=== PATIENT | female | born 1950 | race African-American/Black ===

== ENCOUNTER 2018-11-03 09:26 | Observation (INO) ==
--- NOTE | 2018-11-03 10:30 | XR ---
EXAM DATE: 11/03/2018 10:02 AM EST AGE/SEX: 68 years / Female INDICATIONS: Chest Pain CLINICAL DATA: This is the patient's initial encounter. Patient reports that signs and symptoms have been present for 1 day and indicates a pain score of 5/10. MEDICAL/SURGICAL HISTORY: None. . Left Breast Surgery COMPARISON: No prior exams available for comparison. FINDINGS: The heart size is upper limits of normal. The aorta appears widened. There is increased interstitial markings in the upper lungs. The mid and inferior lungs appear clear. There is blunting of the left costophrenic angle suggestive of a mild left effusion. Clips are seen in the left axillary region. Th e patient appears to be status post left mastectomy. There is an oval focal density seen over the rig ht lower chest related to either a calcified mass in the right breast or chest migraine lumen the rig ht lung base. CONCLUSION: Increased interstitial disease in the upper lungs. This is nonspecific. It could be the sequela of pr ior radiation in this region with the appropriate history. Some underlying interstitial disease can't have an apical distribution. Prior studies are currently unavailable. The heart size is upper limits of normal. The aorta appears widened. Blunting of the left costophrenic angle which may represent mild effusion. Electronically signed by: Manuelito Somers MD Board Certified Radiologist 11/03/2018 10:29 AM EST
[2018-11-03 11:45] LABS: Baso # (Auto) 0.1 th/mm3 (0.0-0.2); Baso % (Auto) 0.8 % (0.0-2.0); Eos # (Auto) 0.1 th/mm3 (0.0-0.4); Eos % (Auto) 1.7 % (0.0-4.0); Hematocrit 34.4 % (35.0-46.0); Hemoglobin 12.2 gm/dL (11.6-15.3); Lymph % (Auto) 14.5 % (9.0-44.0); Mean Corpuscular HGB Conc 35.4 % (32.0-36.0); Mean Corpuscular Hemoglobin 32.5 pg (27.0-34.0); Mean Corpuscular Volume 91.8 fL (80.0-100.0); Mean Platelet Volume 9.1 fL (7.0-11.0); Mono # (Auto) 0.7 th/mm3 (0.0-0.9); Mono % (Auto) 9.7 % (0.0-8.0); Neut # (Auto) 5.2 th/mm3 (1.8-7.7); Neut % (Auto) 73.3 % (16.0-70.0); Platelet Count 248 th/mm3 (150-450); Red Blood Count 3.75 mil/mm3 (4.00-5.30); Red Cell Distribution Width 17.8 % (11.6-17.2); White Blood Count 7.1 th/mm3 (4.0-11.0)
[2018-11-03 13:11] LABS: Albumin 3.7 g/dL (3.4-5.0); Anion Gap 6 meq/L (5-15); Aspartate Aminotransferase 12 U/L (15-37); Blood Urea Nitrogen 14 mg/dL (7-18); Calcium 9.1 mg/dL (8.5-10.1); Carbon Dioxide 28.4 meq/L (21.0-32.0); Chloride 107 meq/L (98-107); Glomerular Filtration Rate Greater Than 89 mL/min (>89); Glucose,Random 81 mg/dL (74-106); Potassium 3.5 meq/L (3.5-5.1); Sodium 141 meq/L (136-145)
[2018-11-03 13:12] LABS: Alanine Aminotransferase 14 U/L (10-53)
[2018-11-03 13:18] LABS: Alkaline Phosphatase 60 U/L (45-117)
--- NOTE | 2018-11-03 15:21 | CT ---
EXAM DATE: 11/03/2018 3:10 PM EST AGE/SEX: 68 years / Female INDICATIONS: Left sided chest pain and shortness of breath since last night. CLINICAL DATA: This is the patient's initial encounter. Patient reports that signs and symptoms have been present for 1 day and indicates a pain score of 6/10. MEDICAL/SURGICAL HISTORY: Asthma. Hypertension. . spinal surgery, mastectomy RADIATION DOSE: 7.16 CTDI (mGy) [place] [facility] [place]. . TECHNIQUE: Volumetric scanning was performed using a multi-row detector CT scanner during bolus infu wyatt of 65 ml Omnipaque 350 (iohexol) nonionic water-soluble contrast as a single exam dose. The danny a was post processed with a variety of visualization algorithms including full volume maximum intensi ty projection and sliding thin slab reformation. Using automated exposure control and adjustment of t he mA and/or kV according to patient size, radiation dose was kept as low as reasonably achievable to obtain optimal diagnostic quality images. DICOM format image data is available electronically for r eview and comparison. FINDINGS: Pulmonary Arteries: There is pulmonary embolus in the pulmonary supplying the posterior aspect of th e right upper lobe. No other definite pulmonary embolus is seen. Lung: There is increased density in the upper lungs bilaterally. There are some calcified granulomas in the upper lungs. Effusion: None. Mediastinum: No evidence of mediastinal or hilar adenopathy. There is a mild amount of pericardial f luid present. Other: The axilla is unremarkable. There is a densely calcified mass in the inferior lateral right b reast. Typically large calcified masses are benign in the breasts. The patient is status post left ma stectomy. There is a 2.6 x 1.3 cm mass involving the skin and subcutaneous fat at the lower medial le ft chest. This causes focal bulging of the skin and should be palpable and visible. CONCLUSION: 1. Pulmonary embolus in the pulmonary supplying the posterior aspect of the right upper lobe. 2. Chronic appearing scarring in the posterior upper lungs scattered calcification. 3. Mild pericardial effusion. 4. Status post left mastectomy. There is a 2.6 x 1.3 cm mass involving the skin and subcutaneous fat . This causes bulging of the skin over this region. This could be related to a skin lesion. It is non specific. It should be palpable and visible. 5. Benign calcified right breast mass. Electronically signed by: Manuelito Somers MD Board Certified Radiologist 11/03/2018 3:20 PM EST
[2018-11-03] MEDS ORDERED: Heparin 10,000 UNITS/10 ML Vial (for IV use) IV.PUSH STA (16:14)
[2018-11-03] MEDS ORDERED: Heparin Drip 25,000 UNIT/250 ML BAG IV.CONT PRN (16:14)
[2018-11-03 17:01] LABS: INR 1.1 Ratio; Prothrombin Time 11.2 sec (9.8-11.6)
--- NOTE | 2018-11-03 17:24 | ED ---
HPI General Chief complaint: Chest Pain Stated complaint: Chest pain/SOB Time Seen by Provider: 11/03/18 09:41 History of Present Illness HPI narrative: Patient is a 5-year-old female presents emergency department for evaluation of chest pain radiating her back as well as her neck since last night. Patient states she does have a history of breast cancer with radiation and mastectomy on the left side. She does endorse minimal shortness of breath only on review of systems. No fevers no cough no congestion. States never had any blood clots in the legs or in her chest before. States the symptoms are fairly mild, no alleviating or exacerbating factors identified, for the past day , associated signs and symptoms in context as above Related Data Home Medications Medication Instructions Recorded Confirmed albuterol sulfate [Ventolin HFA] 2 puff INHALATION Q4H PRN 06/01/18 11/03/18 brimonidine-timolol [Combigan] 1 drp OPHTHALMIC (EYE) BID 06/01/18 11/03/18 bupropion HCl 150 mg PO BID 06/01/18 11/03/18 fluticasone [Flovent HFA] 2 inh INHALATION BID 06/01/18 11/03/18 gabapentin 100 mg PO DAILY 06/01/18 11/03/18 hydrochlorothiazide 25 mg PO QAM 06/01/18 11/03/18 latanoprost 1 drp OPHTHALMIC (EYE) QPM 06/01/18 11/03/18 loratadine 10 mg PO DAILY 06/01/18 11/03/18 meloxicam 7.5 mg PO DAILY 06/01/18 11/03/18 Allergies Allergy/AdvReac Type Severity Reaction Status Date / Time egg Allergy Severe Hives Unverified 06/27/17 15:13 Influenza Virus Vaccines Allergy Severe ALLERGIC Unverified 06/27/17 15:13 TO EGGS penicillin G Allergy Severe Hives Unverified 06/27/17 15:13 CATS Allergy Severe SOB Uncoded 10/16/07 08:01 Latex allergy Allergy Severe hives Uncoded 10/22/07 15:40 Review of Systems ROS: all other systems reviewed are negative [facility] Social History Social History Substance History: No History of Abuse Second Hand Smoke Exposure: No Smoking Status: Never smoker How Often Do You Have a Drink Containing Alcohol: Never Recent Travel in [facility] within the Last 8 Weeks: No Recent Out of Country Travel within the Last 8 Weeks: No Immunization History Tetanus Immunization: >5 Years Exam Narrative Exam Narrative: GENERAL: Well-developed well-nourished, no obvious distress, quite pleasant. SKIN: Focused skin assessment warm/dry. HEAD: Atraumatic. Normocephalic. EYES: Pupils equal and round. No scleral icterus. No injection or drainage. ENT: No nasal bleeding or discharge. Mucous membranes pink and moist. NECK: Trachea midline. No JVD. CARDIOVASCULAR: Regular rate and rhythm. No murmur appreciated. RESPIRATORY: No accessory muscle use. Clear to auscultation. Breath sounds equal bilaterally. GASTROINTESTINAL: Abdomen soft, non-tender, nondistended. Hepatic and splenic margins not palpable. MUSCULOSKELETAL: No obvious deformities. No clubbing. No cyanosis. No edema. NEUROLOGICAL: Awake and alert. No obvious cranial nerve deficits. Motor grossly within normal limits. Normal speech. PSYCHIATRIC: Appropriate mood and affect; insight and judgment normal. Course Initial Documented Vital Signs Temperature 98.1 F 11/03/18 09:32 Pulse Rate 78 11/03/18 09:32 Respiratory Rate 20 11/03/18 09:32 Blood Pressure 192/93 H 11/03/18 09:32 Pulse Oximetry 99 11/03/18 09:32 Last Documented Vital Signs Temperature 98.5 F 11/03/18 12:20 Pulse Rate 74 11/03/18 14:32 Respiratory Rate 18 11/03/18 14:32 Blood Pressure 179/102 H 11/03/18 14:32 Pulse Oximetry 96 11/03/18 17:07 Medical Decision Making [facility] Narrative Medical decision making narrative: Patient room in the emergency department, my concern would be for pulmonary embolism in this patient, she does have a fair story for ACS as well. EKG negative, troponin negative x2. She did have a CT PE protocol performed which did show pulmonary embolism which is safe in intermediate volume. There is no right heart strain on the patient's physical exam nor the CAT scan nor the EKG. Patient was heparinized after PT PTT and INR have her nerve turned is normalized. Patient has not had any significant bleeding events nor any recent surgeries. Diagnosis was discussed with her as well [facility] and she is agreeable for admission. Medical Screen Exam Complete: Yes Emergency Medical Condition: Yes Lab Data Result diagrams: 11/03/18 09:40 11/03/18 12:47 Lab Results 11/03/18 11/03/18 11/03/18 Range/Units 09:40 12:47 15:20 WBC 7.1 (4.0-11.0) th/mm3 RBC 3.75 L (4.00-5.30) mil/mm3 Hgb 12.2 (11.6-15.3) gm/dL Hct 34.4 L (35.0-46.0) % MCV 91.8 (80.0-100.0) fL MCH 32.5 (27.0-34.0) pg MCHC 35.4 (32.0-36.0) % RDW 17.8 H (11.6-17.2) % Plt Count 248 (150-450) th/mm3 MPV 9.1 (7.0-11.0) fL Neut % (Auto) 73.3 H (16.0-70.0) % Lymph % (Auto) 14.5 (9.0-44.0) % Jack % (Auto) 9.7 H (0.0-8.0) % Eos % (Auto) 1.7 (0.0-4.0) % Baso % (Auto) 0.8 (0.0-2.0) % Neut # (Auto) 5.2 (1.8-7.7) th/mm3 Lymph # (Auto) 1.0 (1.0-4.8) th/mm3 Jack # (Auto) 0.7 (0.0-0.9) th/mm3 Eos # (Auto) 0.1 (0.0-0.4) th/mm3 Baso # (Auto) 0.1 (0.0-0.2) th/mm3 WBC Differential . Differential Comment Auto diff final PT (9.8-11.6) sec INR Ratio APTT (23.4-31.7) sec Sodium 141 (136-145) meq/L Potassium 3.5 (3.5-5.1) meq/L Chloride 107 (98-107) meq/L Carbon Dioxide 28.4 (21.0-32.0) meq/L Anion Gap 6 (5-15) meq/L BUN 14 (7-18) mg/dL Creatinine 0.66 (0.50-1.00) mg/dL Estimated GFR Greater than 89 (>89) mL/min Random Glucose 81 (74-106) mg/dL Calcium 9.1 (8.5-10.1) mg/dL Total Bilirubin 0.5 (0.2-1.0) mg/dL AST 12 L (15-37) U/L ALT 14 (10-53) U/L Alkaline Phosphatase 60 (45-117) U/L Troponin I Less than 0.02 L Less than 0.02 L (0.02-0.05) ng/mL Total Protein 8.0 (6.4-8.2) g/dL Albumin 3.7 (3.4-5.0) g/dL 11/03/18 11/03/18 Range/Units 16:20 16:20 WBC (4.0-11.0) th/mm3 RBC (4.00-5.30) mil/mm3 Hgb (11.6-15.3) gm/dL Hct (35.0-46.0) % MCV (80.0-100.0) fL MCH (27.0-34.0) pg MCHC (32.0-36.0) % RDW (11.6-17.2) % Plt Count (150-450) th/mm3 MPV (7.0-11.0) fL Neut % (Auto) (16.0-70.0) % Lymph % (Auto) (9.0-44.0) % Jack % (Auto) (0.0-8.0) % Eos % (Auto) (0.0-4.0) % Baso % (Auto) (0.0-2.0) % Neut # (Auto) (1.8-7.7) th/mm3 Lymph # (Auto) (1.0-4.8) th/mm3 Jack # (Auto) (0.0-0.9) th/mm3 Eos # (Auto) (0.0-0.4) th/mm3 Baso # (Auto) (0.0-0.2) th/mm3 WBC Differential Differential Comment PT 11.2 (9.8-11.6) sec INR 1.1 Ratio APTT 28.0 Cancelled (23.4-31.7) sec Sodium (136-145) meq/L Potassium (3.5-5.1) meq/L Chloride (98-107) meq/L Carbon Dioxide (21.0-32.0) meq/L Anion Gap (5-15) meq/L BUN (7-18) mg/dL Creatinine (0.50-1.00) mg/dL Estimated GFR (>89) mL/min Random Glucose (74-106) mg/dL Calcium (8.5-10.1) mg/dL Total Bilirubin (0.2-1.0) mg/dL AST (15-37) U/L ALT (10-53) U/L Alkaline Phosphatase (45-117) U/L Troponin I (0.02-0.05) ng/mL Total Protein (6.4-8.2) g/dL Albumin (3.4-5.0) g/dL Imaging Data Radiologist's impression: Chest X-Ray 11/03/18 09:37 CONCLUSION: Increased interstitial disease in the upper lungs. This is nonspecific. It could be the sequela of prior radiation in this region with the appropriate history. Some underlying interstitial disease can't have an apical distribution. Prior studies are currently unavailable. The heart size is upper limits of normal. The aorta appears widened. Blunting of the left costophrenic angle which may represent mild effusion. Chest CTA 11/03/18 10:37 CONCLUSION: 1. Pulmonary embolus in the pulmonary supplying the posterior aspect of the right upper lobe. 2. Chronic appearing scarring in the posterior upper lungs scattered calcification. 3. Mild pericardial effusion. 4. Status post left mastectomy. There is a 2.6 x 1.3 cm mass involving the skin and subcutaneous fat. This causes bulging of the skin over this region. This could be related to a skin lesion. It is nonspecific. It should be palpable and visible. 5. Benign calcified right breast mass. Discharge Plan Discharge Disposition Patient Disposition: ED Admit(ED Internal Use Only) Discharge Order Discharge Orders: ED Use Only Admit Order (Routine); Ordered 11/03/18 Ordered By: Shon Corral Discharge Details Diagnosis: Pulmonary emboli Physicians Team ED Provider: Shon Corral Primary Care Provider: UNKNOWN, Attending Provider: Kurtis Nesbitt Status ED Status: Admitted Patient
[2018-11-03] MEDS ORDERED: Bisacodyl 10 MG Supp RECTAL PRN (17:37)
[2018-11-03] MEDS ORDERED: Acetaminophen 325 MG Tablet PO PRN (17:37)
--- NOTE | 2018-11-03 17:49 | P.HPIM ---
History of Present Illness Primary Care Physician: UNKNOWN History of Present Illness: 68-year-old female with history of breast cancer in 2000, COPD, osteoarthritis presents to the ER after increasing difficulty with breathing beginning last night. She woke and experienced pleuritic pain combined with shortness of breath, she spent the second half of the night trying to get comfortable and after she awoke in the morning her family encouraged her to come to the ER for evaluation. ER workup revealed a localized area of pulmonary embolism in the left posterior lung. She states that she has never had a DVT or PE in the past. She is breathing comfortably currently, off of oxygen, no cough, no congestion. She denies any recent trauma , denies any recent travel. She has had no recent fevers, no cough, no urinary tract symptoms, no nausea, vomiting, diarrhea. Inpatient Certification Inpatient Certification: I certify that the inpatient services were ordered in accordance with Medicare regulations governing the order. This includes certification that hospital inpatient services are reasonable and necessary and in the case of services not specified as inpatient-only under 42 CFR 419.22(n), that they are appropriately provided as inpatient services in accordance to with the 2-midnight benchmark under 43 CFR 412.3(e) Review of Systems Review of Systems: all other systems reviewed are negative [facility] Medical History Medical History Abdominal mass (Acute) Asthma (Acute) Depression (Acute) Glaucoma (Acute) Hypertension (Acute) Surgical History Surgical History History of back surgery (Acute) History of mastectomy (Acute) Family History Family History Other Hypertension Social History Social History Substance History: No History of Abuse Second Hand Smoke Exposure: No Smoking Status: Never smoker How Often Do You Have a Drink Containing Alcohol: Never Recent Travel in [place] within the Last 8 Weeks: No Recent Out of Country Travel within the Last 8 Weeks: No Immunization History Tetanus Immunization: >5 Years Medications and Allergies Allergies Allergy/AdvReac Type Severity Reaction Status Date / Time egg Allergy Severe Hives Unverified 06/27/17 15:13 Influenza Virus Vaccines Allergy Severe ALLERGIC Unverified 06/27/17 15:13 TO EGGS penicillin G Allergy Severe Hives Unverified 06/27/17 15:13 CATS Allergy Severe SOB Uncoded 10/16/07 08:01 Latex allergy Allergy Severe hives Uncoded 10/22/07 15:40 Home Medications Medication Instructions Recorded Confirmed Type albuterol sulfate [Ventolin HFA] 2 puff INHALATION Q4H PRN 06/01/18 11/03/18 History brimonidine-timolol [Combigan] 1 drp OPHTHALMIC (EYE) BID 06/01/18 11/03/18 History bupropion HCl 150 mg PO BID 06/01/18 11/03/18 History fluticasone [Flovent HFA] 2 inh INHALATION BID 06/01/18 11/03/18 History gabapentin 100 mg PO DAILY 06/01/18 11/03/18 History hydrochlorothiazide 25 mg PO QAM 06/01/18 11/03/18 History latanoprost 1 drp OPHTHALMIC (EYE) QPM 06/01/18 11/03/18 History loratadine 10 mg PO DAILY 06/01/18 11/03/18 History meloxicam 7.5 mg PO DAILY 06/01/18 11/03/18 History Active Medications: Active Medications Acetaminophen (Tylenol) 650 mg PO Q4H PRN PRN Reason: Temp > 100.4 Al Hydroxide/Mg Hydroxide (Milk Of Magnesia Liq) 30 ml PO Q12H PRN PRN Reason: Mild Constipation Bisacodyl (Dulcolax Supp) 10 mg RECTAL DAILY PRN PRN Reason: SEVERE CONSITIPATION Heparin Sodium/Dextrose (Heparin/D5w 25,000 U/250 Ml) 25,000 unit in 250 mls @ 0 mls/hr IV.CONT TITRATE PRN; Protocol PRN Reason: Per Protocol Last Admin: 11/03/18 17:29 Dose: 1,000 units/hr, 10 mls/hr Lactulose (Lactulose Liq) 30 ml PO DAILY PRN PRN Reason: SEVERE CONSITIPATION Ondansetron HCl (Zofran Inj) 4 mg IV.PUSH Q6H PRN PRN Reason: NAUSEA OR VOMITING Sennosides (Senokot) 17.2 mg PO Q12H PRN PRN Reason: Moderate Constipation Sodium Chloride (Ns Flush) 2 ml IV.FLUSH UNSCH PRN PRN Reason: FLUSH AFTER USING IV ACCESS Sodium Chloride (Ns Flush) 2 ml IV.FLUSH BID SAL Sodium Chloride (Ns Flush) 2 ml IV.FLUSH PRN PRN PRN Reason: FLUSH AFTER USING IV ACCESS Physical Exam Vital signs: Last Vital Signs Temp 97.9 F 11/03/18 17:33 Pulse 55 L 11/03/18 17:33 Resp 16 11/03/18 17:33 BP 184/95 H 11/03/18 17:33 Pulse Ox 100 11/03/18 17:33 Intake & Output 11/01/18 11/02/18 11/03/18 11/04/18 06:59 06:59 06:59 06:59 Weight 56.245 kg Narrative: GENERAL: AAOx3, no acute distress, adequate nutrition SKIN: Warm and dry, no rashes. HEAD: Atraumatic. Normocephalic. EYES: Pupils equal, round, reactive to light. No scleral icterus. No injection or drainage. ENT: No nasal bleeding or discharge. Moist mucous membranes. Nonerythematous oropharynx. NECK: Trachea midline. No JVD. Thyroid size within normal limits. CARDIOVASCULAR: Regular rate and rhythm. No murmur, no gallops, no rubs. Mild venous stasis of bilateral feet RESPIRATORY: Clear and equal to auscultation bilaterally. No crackles, no wheezes. No accessory muscle use. GASTROINTESTINAL: Abdomen soft, non-tender, nondistended, normal active bowel sounds. Hepatic and splenic margins not palpable. MUSCULOSKELETAL: Extremities without clubbing or cyanosis. No obvious deformities. No edema. NEUROLOGICAL: Awake and alert. No obvious cranial nerve deficits. Motor grossly within normal limits. No focal deficits. Five out of 5 muscle strength in the arms and legs. Normal speech. PSYCHIATRIC: Appropriate mood and affect; insight and judgment normal. Results Labs CBC & Chem 7: 11/03/18 09:40 11/03/18 12:47 Imaging Impressions Chest X-Ray 11/03/18 09:37 CONCLUSION: Increased interstitial disease in the upper lungs. This is nonspecific. It could be the sequela of prior radiation in this region with the appropriate history. Some underlying interstitial disease can't have an apical distribution. Prior studies are currently unavailable. The heart size is upper limits of normal. The aorta appears widened. Blunting of the left costophrenic angle which may represent mild effusion. Chest CTA 11/03/18 10:37 CONCLUSION: 1. Pulmonary embolus in the pulmonary supplying the posterior aspect of the right upper lobe. 2. Chronic appearing scarring in the posterior upper lungs scattered calcification. 3. Mild pericardial effusion. 4. Status post left mastectomy. There is a 2.6 x 1.3 cm mass involving the skin and subcutaneous fat. This causes bulging of the skin over this region. This could be related to a skin lesion. It is nonspecific. It should be palpable and visible. 5. Benign calcified right breast mass. Caprini VTE Risk Assessment Caprini VTE Risk Assessment: Moderate/High Risk (score >= 2) Caprini Risk Assessment Model: Point Value = 1 Point Value = 2 Point Value = 3 Point Value = 5 Age 41-60 Minor surgery BMI > 25 kg/m2 Swollen legs Varicose veins or History of unexplained or recurrent spontaneous Oral contraceptives or hormone replacement Sepsis (< 1 month) Serious lung disease, including pneumonia (< 1 month) Abnormal pulmonary function Acute myocardial infarction Congestive heart failure (< 1 month) History of inflammatory bowel disease Medical patient at bed rest Age 61-74 Arthroscopic surgery Major open surgery (> 45 min) Laparoscopic surgery (> 45 min) Malignancy Confined to bed (> 72 hours) Immobilizing plaster cast Central venous access Age >= 75 History of VTE Family history of VTE Factor V Leiden Prothrombin [id number] Lupus anticoagulant Anticardiolipin antibodies Elevated serum homocysteine Heparin-induced thrombocytopenia Other congenital or acquired thrombophilia Stroke (< 1 month) Elective arthroplasty Hip, pelvis, or leg fracture Acute spinal cord injury (< 1 month) Prophylaxis Regimen: Total Risk Factor Score Risk Level Prophylaxis Regimen 0-1 Low Early ambulation 2 Moderate Order ONE of the following: *Sequential Compression Device (SCD) *Heparin 5000 units SQ BID 3-4 Higher Order ONE of the following medications: *Heparin 5000 units SQ TID *Enoxaparin/Lovenox 40 mg SQ daily (WT < 150 kg, CrCl > 30 mL/min) *Enoxaparin/Lovenox 30 mg SQ daily (WT < 150 kg, CrCl > 10-29 mL/min) *Enoxaparin/Lovenox 30 mg SQ BID (WT < 150 kg, CrCl > 30 mL/min) AND/OR *Sequential Compression Device (SCD) 5 or more Highest Order ONE of the following medications: *Heparin 5000 units SQ TID (Preferred with Epidurals) *Enoxaparin/Lovenox 40 mg SQ daily (WT < 150 kg, CrCl > 30 mL/min) *Enoxaparin/Lovenox 30 mg SQ daily (WT < 150 kg, CrCl > 10-29 mL/min) *Enoxaparin/Lovenox 30 mg SQ BID (WT < 150 kg, CrCl > 30 mL/min) AND *Sequential Compression Device (SCD) Assessment and Plan Plan Acute pulmonary embolism CTA reveals embolus in posterior aspect of right upper lobe Patient is saturating at 100% off of oxygen She has no cough or increased congestion, pain is controlled She is started on a heparin drip Her case is complicated by history of breast cancer in 2000 Hematology is consulted to assist with duration due to presence of cancer, otherwise default would be 6 months If she is stable tomorrow she can transition to p.o. anticoagulants and likely be discharged Hypertension Continue HCTZ COPD Continue albuterol as needed, Flovent scheduled DVT prophylaxis Heparin
[2018-11-03] MEDS ORDERED: Latanoprost 0.005% Opth Drops 2.5 ML Bottle EACH EYE SCH (21:00)
[2018-11-03] MEDS: buPROPion 150 MG 12 HR Tablet PO SCH (22:39)
[2018-11-03] MEDS: Timolol 0.25% Drops 5 ML Bottle EACH EYE SCH (22:39)
[2018-11-04 05:39] LABS: Hematocrit 35.2 % (35.0-46.0); Hemoglobin 12.1 gm/dL (11.6-15.3); Mean Corpuscular HGB Conc 34.5 % (32.0-36.0); Mean Corpuscular Hemoglobin 31.3 pg (27.0-34.0); Mean Corpuscular Volume 90.7 fL (80.0-100.0); Platelet Count 265 th/mm3 (150-450); Red Blood Count 3.88 mil/mm3 (4.00-5.30); Red Cell Distribution Width 17.4 % (11.6-17.2); White Blood Count 6.7 th/mm3 (4.0-11.0)
[2018-11-04 06:04] LABS: Calcium 9.3 mg/dL (8.5-10.1); Carbon Dioxide 26.9 meq/L (21.0-32.0); Potassium 3.2 meq/L (3.5-5.1)
[2018-11-04 08:38] VITALS: RESP 16
[2018-11-04] MEDS: buPROPion 150 MG 12 HR Tablet PO SCH (09:56)
[2018-11-04] MEDS: Timolol 0.25% Drops 5 ML Bottle EACH EYE SCH (09:57)
[2018-11-04] MEDS ORDERED: Rivaroxaban 15 MG Tablet PO SCH (12:15)
[2018-11-04] MEDS ORDERED: Acetaminophen 325 MG Tablet PO PRN (12:15)
[2018-11-04 12:33] VITALS: BP 134/68; PULSE 67; TEMP 98.8; O2SAT 98
--- NOTE | 2018-11-04 12:52 | P.PNIM ---
Subjective Interval history: 68-year-old female admitted with shortness of breath and chest pain found to have PE. Patient seen and examined, denies shortness of breath, states feeling better, still some mild left shoulder pain, no nausea vomiting, no palpitations, Physical Exam Vital signs: Last Vital Signs Temp 98.8 F 11/04/18 12:00 Pulse 67 11/04/18 12:00 Resp 16 11/04/18 12:00 BP 134/68 11/04/18 12:00 Pulse Ox 98 11/04/18 12:00 Intake & Output 11/02/18 11/03/18 11/04/18 11/05/18 06:59 06:59 06:59 06:59 Intake Total 0 / 0 Balance 0 / 0 Weight 56.245 kg Pleasant awake alert oriented no acute distress Heart S1-S2 regular Lungs clear bilateral no wheeze no rhonchi Abdomen soft nondistended positive bowel sounds Extremities no clubbing cyanosis no calf tenderness Results Labs CBC & Chem 7: 11/04/18 05:01 11/04/18 05:01 Imaging Imaging: Impressions Chest CTA 11/03/18 10:37 CONCLUSION: 1. Pulmonary embolus in the pulmonary supplying the posterior aspect of the right upper lobe. 2. Chronic appearing scarring in the posterior upper lungs scattered calcification. 3. Mild pericardial effusion. 4. Status post left mastectomy. There is a 2.6 x 1.3 cm mass involving the skin and subcutaneous fat. This causes bulging of the skin over this region. This could be related to a skin lesion. It is nonspecific. It should be palpable and visible. 5. Benign calcified right breast mass. Assessment and Plan Plan ACUTE PE - right upper lobe start Xarelto, hemodynamically clinically stable, no evidence of RV strain, discussed with Dr. Kovacs, probably okay to discharge home on Xarelto or Eliquis, will need at least 6 months anticoagulation. Discussed with Dr. Tay patient's academic support specialist she will follow-up with him as well. COPDclinically stable HTN accelerated -better controlled resume home meds HYPOKALEMIA - replace po BREAST CA - s/p mastectomy - fu w oncology Discharge patient to home when ok w hematology Condition on discharge: Improved Regular Diet as tolerated Ad Addis activity Rx written: xarelto Follow-up with primary care physician, PULM, HEME Progress Note: Quality VTE Deep Vein Thrombosis/Pulmonary Embolism Present on Admission: Yes
--- NOTE | 2018-11-04 13:05 | P.CON ---
History of Present Illness Service: oncology Consult date: 11/04/18 Primary Care Provider: UNKNOWN History of Present Illness: Ms. dueñas is a 68year old lady with a history of breast cancer follows in clinic with my colleague Dr. Wallis. She was diagnosed with left sided breast cancer in 07/2005. She underwent left modified radical mastectomy which showed mulficoal tumor. She recieved chemotherapy and 5 years of anastrozole therapy which was competed in 01/2011. She is currently on surveillance. She was last seen in clinic on 03/16/2018. She presented to the ED with pleuritic chest pain and shortness of breath. CTA with pulmonary embolism in the left posterior lung. She reports no recent hospitalizations, exposure to heparin, illness, travel. Review of Systems All other systems reviewed negative except as stated in HPI PMFSH - History History Provided By: Patient - Medical History Medical History: Medical History (Last Reviewed 11/04/18 @ 12:59 by Farrah Kovacs) Abdominal mass Asthma Depression Glaucoma Hypertension - Surgical History Surgical History: Surgical History (Last Reviewed 11/04/18 @ 12:59 by Farrah Kovacs) History of back surgery History of mastectomy - Family History Family History: Family History (Last Reviewed 11/04/18 @ 12:59 by Farrah Kovacs) Other Hypertension - Social History I have reviewed the patient's Social History: Yes - Tobacco History Second Hand Smoke Exposure: No Tobacco Use In Past 30 Days: No Smoking Status: Never smoker - Alcohol History How Often Do You Have a Drink Containing Alcohol: Never - Substance Use History Substance History: No History of Abuse - Travel History Recent Travel in the [place] Within the Last 8 Weeks: No Recent Travel Out of the Country Within the Last 8 Weeks: No - Immunization History Tetanus Immunization: >5 Years Medications and Allergies Active Medications: Active Medications Acetaminophen (Tylenol) 650 mg PO Q4H PRN PRN Reason: TEMP>101F, PAIN 1-10, HEADACHE Last Admin: 11/04/18 12:39 Dose: 650 mg Al Hydroxide/Mg Hydroxide (Milk Of Magnesia Liq) 30 ml PO Q12H PRN PRN Reason: Mild Constipation Albuterol (Ventolin Hfa Inh) 2 puff INH Q4H PRN PRN Reason: DYSPNEA Bisacodyl (Dulcolax Supp) 10 mg RECTAL DAILY PRN PRN Reason: SEVERE CONSITIPATION Bupropion HCl (Wellbutrin Sr) 150 mg PO BID [facility] Last Admin: 11/04/18 09:56 Dose: 150 mg Fluticasone Propionate (Flovent Hfa 220 Mg Inh) 1 puff INH BID [facility] Last Admin: 11/04/18 09:59 Dose: 1 puff Lactulose (Lactulose Liq) 30 ml PO DAILY PRN PRN Reason: SEVERE CONSITIPATION Latanoprost (Xalatan 0.005% Opth Drops) 1 drop EACH EYE HS [facility] Last Admin: 11/03/18 22:39 Dose: 1 drop Ondansetron HCl (Zofran Inj) 4 mg IV.PUSH Q6H PRN PRN Reason: NAUSEA OR VOMITING Rivaroxaban (Xarelto) 15 mg PO BID [facility] Last Admin: 11/04/18 12:39 Dose: 15 mg Sennosides (Senokot) 17.2 mg PO Q12H PRN PRN Reason: Moderate Constipation Sodium Chloride (Ns Flush) 2 ml IV.FLUSH BID [facility] Last Admin: 11/04/18 09:57 Dose: Not Given Sodium Chloride (Ns Flush) 2 ml IV.FLUSH PRN PRN PRN Reason: FLUSH AFTER USING IV ACCESS Timolol Maleate (Timolol 0.25% Drops) 1 drops EACH EYE BID [facility] Last Admin: 11/04/18 09:57 Dose: 1 drops Allergies Allergy/AdvReac Type Severity Reaction Status Date / Time egg Allergy Severe Hives Unverified 06/27/17 15:13 Influenza Virus Vaccines Allergy Severe ALLERGIC Unverified 06/27/17 15:13 TO EGGS penicillin G Allergy Severe Hives Unverified 06/27/17 15:13 CATS Allergy Severe SOB Uncoded 10/16/07 08:01 Latex allergy Allergy Severe hives Uncoded 10/22/07 15:40 Home Medications Medication Instructions Recorded Confirmed Type albuterol sulfate [Ventolin HFA] 2 puff INHALATION Q4H PRN 06/01/18 11/03/18 History brimonidine-timolol [Combigan] 1 drp OPHTHALMIC (EYE) BID 06/01/18 11/03/18 History bupropion HCl 150 mg PO BID 06/01/18 11/03/18 History fluticasone [Flovent HFA] 2 inh INHALATION BID 06/01/18 11/03/18 History gabapentin 100 mg PO DAILY 06/01/18 11/03/18 History hydrochlorothiazide 25 mg PO QAM 06/01/18 11/03/18 History latanoprost 1 drp OPHTHALMIC (EYE) QPM 06/01/18 11/03/18 History loratadine 10 mg PO DAILY 06/01/18 11/03/18 History meloxicam 7.5 mg PO DAILY 06/01/18 11/03/18 History Physical Exam Vital signs: Vital Signs 11/03/18 14:32 11/03/18 16:15 11/03/18 17:07 Temperature 96.6 F L Pulse Rate 74 73 Respiratory Rate 18 18 Blood Pressure 179/102 H 135/84 Pulse Oximetry 98 99 96 11/03/18 17:33 11/03/18 18:39 11/03/18 20:00 Temperature 97.9 F 98.3 F Pulse Rate 55 L 61 71 Respiratory Rate 16 17 Blood Pressure 184/95 H 169/95 H 147/92 H Pulse Oximetry 100 99 99 11/03/18 20:30 11/03/18 20:50 11/04/18 00:00 Temperature 96.7 F L 97.2 F L Pulse Rate 66 64 Respiratory Rate 20 20 Blood Pressure 154/90 H 125/78 Pulse Oximetry 100 100 97 11/04/18 04:02 11/04/18 08:00 11/04/18 12:00 Temperature 98.5 F 98.8 F Pulse Rate 60 72 67 Respiratory Rate 16 16 Blood Pressure 165/84 H 134/68 Pulse Oximetry 100 98 Intake & Output 11/03/18 11/04/18 11/04/18 18:59 06:59 18:59 Intake Total 0 / 0 Balance 0 / 0 Weight 56.245 kg 56.245 kg Intake: IV 0 / 0 Heparin/D5W 25,000 U/250 mL 25, 0 / 0 000 unit In 250 ml @ Per Protocol IV.CONT TITRATE PRN Rx #:[id number] Other: # Voids 3 Weight On Admission 165.1 kg - Constitutional no acute distress - Routine HEENT Exam Head: Present: normocephalic, atraumatic Eye: Present: EOMI, PERRL ENT: Present: mucous membranes moist - Routine Neck Exam Present: supple - Routine Respiratory Exam Present: CTA bilaterally - Routine Cardiovascular Exam Present: RRR, S1, S2 - Routine Abdominal Exam Present: soft - Routine Extremities Exam Comments: No edema - Routine Skin Exam Present: intact - Routine Neurological Exam Present: alert, oriented X3, normal speech - Routine Psychiatric Exam Present: normal affect Results - Labs CBC & Chem 7: 11/04/18 05:01 11/04/18 05:01 Labs: Laboratory Results - last 24 hr 11/03/18 11/03/18 11/03/18 12:47 15:20 16:20 WBC RBC Hgb Hct MCV MCH MCHC RDW Plt Count MPV PT 11.2 INR 1.1 APTT 28.0 Sodium 141 Potassium 3.5 Chloride 107 Carbon Dioxide 28.4 Anion Gap 6 BUN 14 Creatinine 0.66 Estimated GFR Greater than 89 POC Glucose Random Glucose 81 Calcium 9.1 Total Bilirubin 0.5 AST 12 L ALT 14 Alkaline Phosphatase 60 Troponin I Less than 0.02 L Less than 0.02 L Total Protein 8.0 Albumin 3.7 11/03/18 11/03/18 11/04/18 16:20 22:14 05:01 WBC 6.7 RBC 3.88 L Hgb 12.1 Hct 35.2 MCV 90.7 MCH 31.3 MCHC 34.5 RDW 17.4 H Plt Count 265 MPV 8.0 PT INR APTT Cancelled 80.4 H D Sodium Potassium Chloride Carbon Dioxide Anion Gap BUN Creatinine Estimated GFR POC Glucose Random Glucose Calcium Total Bilirubin AST ALT Alkaline Phosphatase Troponin I Total Protein Albumin 11/04/18 11/04/18 11/04/18 05:01 05:45 12:06 WBC RBC Hgb Hct MCV MCH MCHC RDW Plt Count MPV PT INR APTT 63.7 H D Sodium 141 Potassium 3.2 L Chloride 103 Carbon Dioxide 26.9 Anion Gap 11 BUN 18 Creatinine 0.83 Estimated GFR 82 L POC Glucose 139 H Random Glucose 84 Calcium 9.3 Total Bilirubin AST ALT Alkaline Phosphatase Troponin I Total Protein Albumin - Imaging Impressions Chest CTA 11/03/18 10:37 CONCLUSION: 1. Pulmonary embolus in the pulmonary supplying the posterior aspect of the right upper lobe. 2. Chronic appearing scarring in the posterior upper lungs scattered calcification. 3. Mild pericardial effusion. 4. Status post left mastectomy. There is a 2.6 x 1.3 cm mass involving the skin and subcutaneous fat. This causes bulging of the skin over this region. This could be related to a skin lesion. It is nonspecific. It should be palpable and visible. 5. Benign calcified right breast mass. Assessment and Plan - Plan VTE: unprovoked. She is on heparin gtt and will be transitioned to oral DOAC. Discussed risks, benefits, side effect of anticoagulation with pateint. Discussed side effects of anticoagulation including but not limited to bleeding. Discussed reversal agent Andexxa. Discussed that this is not yet widely available. She will need to be on indefinite anticoagulation due to unprovoked clot. She will need close follow up in hematololgy clinic. Given unprovoked clot in an elderly lady would recommend to rule out malignancy. This can be performed outpatient. Left chest wall mass: approximately 2 cm x 1 cm. Appears to be sebaceous cyst. Patient reports that this has been present for many years and has slowly been getting bigger. Does not appear to be infected. Will need to follow up with dermatology for consideration of removal.
--- NOTE | 2018-11-05 01:14 | ECG ---
Date Performed: 11/03/2018 Time Performed: 09:44:29 PTAGE: 68 years EKG: Sinus rhythm POSSIBLE LEFT ATRIAL ENLARGEMENT BORDERLINE ECG PREVIOUS TRACING : 10/22/2007 12.52 Since the previous tracing, no significant change noted DOCTOR: Mika Dong Interpretating Date/Time 11/05/2018 01:14:04
== END 2018-11-04 15:18 | disposition home or self-care (01) ==
LOC: NEPE 09:26 → INTOOBSV 16:53 → NEDA 16:53 → NEPGCP 20:40
PROVIDERS: ADMIT Internal Medicine; ATTEND Internal Medicine
CPT/HCPCS: 71010; 71045; 71275; 80048; 80053; 82948; 82962; 84484; 85025; 85027; 85610; 85730; 93005; 99285; G0378; J1644; Q9967